=== PATIENT | male | born 1985 | race Caucasian/White ===

== ENCOUNTER 2016-12-20 21:26 | Inpatient (IN) | payer OTHER ==
[~2016-12-20] VITALS: Ht 177.8 cm; Wt 91.7 kg
[~2016-12-20 21:26] MED LIST: CLIN1CAP5 PO
[2016-12-20 21:34] VITALS: PULSE 85; RESP 18; TEMP 98.2; O2SAT 100
[2016-12-20] MEDS ORDERED: SODIUM CHLOR 0.9% 1000 ML INJ 1,000 ML IV SCH (21:36)
[2016-12-20 21:37] VITALS: BP 136/89; PULSE 100; RESP 18; O2SAT 99
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
[2016-12-20] MEDS ORDERED: SODIUM CHLORIDE 0.9% FLUSH 10 ML FLUSH IV FLUSH PRN ×2 (21:45→23:15)
[2016-12-20] MEDS ORDERED: ceFAZolin 2 GM PREMIX 50 ML IV ONE (21:45)
[2016-12-20] MEDS ORDERED: ONDANSETRON HCL 4 MG/2 ML VIAL IVP ONE (21:45)
[2016-12-20] MEDS ORDERED: TETANUS/DIPHTHERIA TOXOID ADULT 0.5 ML VIAL IM ONE (21:45)
[2016-12-20] MEDS ORDERED: HYDROmorphone HCL PF 1 MG/ML VIAL IVS ONE (21:45)
[2016-12-20 22:07] LABS: AUTOMATED NEUTROPHIL # 7.9 TH/MM3 (1.8-7.7); BASOPHIL % 0.3 % (0.0-2.0); EOSINOPHIL % 0.2 % (0.0-4.0); HEMO FLAGS DIFF FINAL; LYMPH % 22.4 % (9.0-44.0); LYMPHOCYTE # 2.6 TH/MM3 (1.0-4.8); MEAN CORPUSCULAR HEMOGLOBIN 29.4 PG (27.0-34.0); MEAN CORPUSCULAR HGB CONC 33.5 % (32.0-36.0); MONO % 8.9 % (0.0-8.0); NEUT % 68.2 % (16.0-70.0); PLATELET COUNT 357 TH/MM3 (150-450); RED BLOOD COUNT 4.55 MIL/MM3 (4.50-5.90); RED CELL DISTRIBUTION WIDTH 13.9 % (11.6-17.2); WHITE BLOOD COUNT 11.6 TH/MM3 (4.0-11.0)
[2016-12-20 22:11] LABS: INTERNATIONAL NORMALIZED RATIO 1.1 RATIO; PROTHROMBIN TIME - PATIENT 11.8 SEC (9.8-11.6)
[2016-12-20] MEDS ORDERED: HYDROmorphone HCL PF 1 MG/ML VIAL IV PUSH ONE ×2 (22:15→22:45)
[2016-12-20 22:20] VITALS: BP 138/92; PULSE 99; RESP 18; O2SAT 100
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
[2016-12-20 22:28] LABS: ANION GAP 16 MEQ/L (5-15); AST (GOT) 32 U/L (15-37); BICARBONATE 21.7 MEQ/L (21.0-32.0); BLOOD UREA NITROGEN 21 MG/DL (7-18); CHLORIDE 100 MEQ/L (98-107); GLOMERULAR FILTRATION RATE 58 ML/MIN (>89); POTASSIUM 3.3 MEQ/L (3.5-5.1); SODIUM (NA) 138 MEQ/L (136-145)
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
[2016-12-20 22:34] LABS: ALKALINE PHOSPHATASE 88 U/L (45-117); ALT (GPT) 31 U/L (12-78); TOTAL BILIRUBIN ADULT 1.7 MG/DL (0.2-1.0)
[2016-12-20] MEDS ORDERED: GENTAMICIN 80 MG PREMIX 100 ML IV ONE (23:15)
[2016-12-20] MEDS ORDERED: ACETAMINOPHEN/HYDROcodone 325 MG/5 MG TAB PO PRN (23:15)
[2016-12-20] MEDS ORDERED: ONDANSETRON HCL 4 MG/2 ML VIAL IV PRN (23:15)
[2016-12-20] MEDS ORDERED: MAGNESIUM HYDROXIDE SUSP 30 ML CUP PO PRN (23:15)
[2016-12-20] MEDS ORDERED: ENALAPRILAT 1.25 MG/ML VIAL IV PRN (23:15)
[2016-12-20 23:30] VITALS: BP 142/88; PULSE 96; RESP 16; O2SAT 99
[2016-12-20] MEDS ORDERED: GENTAMICIN 80 MG PREMIX 100 ML ONE (23:35)
[2016-12-20] MEDS: SODIUM CHLOR 0.9% 1000 ML INJ 1,000 ML IV SCH (23:48)
[2016-12-20] MEDS: HYDROmorphone HCL PF 1 MG/ML VIAL IVP PRN (23:57)
[2016-12-21] VITALS (7 sets, daily range): BP systolic 104–130; BP diastolic 52–80; PULSE 73–89; RESP 16–20; TEMP 97.2–99.7; O2SAT 98–100
[2016-12-21] MEDS ORDERED: ceFAZolin 2 GM PREMIX 50 ML IV SCH
[2016-12-21] MEDS: ACETAMINOPHEN/HYDROcodone 325 MG/5 MG TAB PO PRN ×5 (01:18→21:25)
[2016-12-21] MEDS: PANTOPRAZOLE SODIUM 40 MG VIAL IVP SCH ×2 (01:19→23:41)
[2016-12-21] MEDS: HYDROmorphone HCL PF 1 MG/ML VIAL IVP PRN ×5 (02:57→19:39)
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
[2016-12-21] MEDS: ceFAZolin 2 GM PREMIX 50 ML IV SCH ×3 (05:26→21:24)
[2016-12-21 07:19] LABS: AUTOMATED NEUTROPHIL # 6.8 TH/MM3 (1.8-7.7); BASOPHIL % 0.3 % (0.0-2.0); EOSINOPHIL % 0.2 % (0.0-4.0); HEMO FLAGS DIFF FINAL; LYMPH % 13.8 % (9.0-44.0); LYMPHOCYTE # 1.3 TH/MM3 (1.0-4.8); MEAN CELL VOLUME 89.4 FL (80.0-100.0); MEAN CORPUSCULAR HEMOGLOBIN 29.8 PG (27.0-34.0); MEAN CORPUSCULAR HGB CONC 33.4 % (32.0-36.0); MONO % 12.5 % (0.0-8.0); NEUT % 73.2 % (16.0-70.0); PLATELET COUNT 268 TH/MM3 (150-450); RED BLOOD COUNT 3.92 MIL/MM3 (4.50-5.90); RED CELL DISTRIBUTION WIDTH 13.7 % (11.6-17.2); WHITE BLOOD COUNT 9.3 TH/MM3 (4.0-11.0)
[2016-12-21 07:48] LABS: ANION GAP 10 MEQ/L (5-15); AST (GOT) 38 U/L (15-37); BICARBONATE 22.5 MEQ/L (21.0-32.0); BLOOD UREA NITROGEN 18 MG/DL (7-18); CHLORIDE 106 MEQ/L (98-107); GLOMERULAR FILTRATION RATE 108 ML/MIN (>89); POTASSIUM 3.7 MEQ/L (3.5-5.1); SODIUM (NA) 138 MEQ/L (136-145)
[2016-12-21 07:52] LABS: ALKALINE PHOSPHATASE 68 U/L (45-117); ALT (GPT) 28 U/L (12-78)
[2016-12-21] MEDS: DOCUSATE SODIUM 100 MG CAP PO SCH ×2 (08:17→21:23)
[2016-12-21] MEDS: SODIUM CHLOR 0.9% 1000 ML INJ 1,000 ML IV SCH ×2 (09:10→17:59)
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
[2016-12-21] MEDS ORDERED: DOCU1CAP39 PO (11:49)
[2016-12-21] MEDS ORDERED: MILKSUS PO (11:49)
[2016-12-21] MEDS: ENOXAPARIN SODIUM 30 MG/0.3 ML SYRINGE SQ SCH ×2 (12:50→23:41)
[2016-12-21] MEDS: KETOROLAC TROMETHAMINE 30 MG/ML (IVP) VIAL IV PUSH SCH ×3 (12:51→23:41)
--- NOTE | 2016-12-21 21:14 | EKG ---
Date Performed: 12/21/2016 Time Performed: 00:07:19 PTAGE: 31 years EKG: Sinus rhythm WITH SINUS ARRHYTHMIA NORMAL ECG NO PREVIOUS TRACING DOCTOR: Horacio Canales Interpretating Date/Time 12/21/2016 21:12:45
[2016-12-21] MEDS: MAGNESIUM HYDROXIDE SUSP 30 ML CUP PO SCH (21:23)
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
[2016-12-22] VITALS (7 sets, daily range): BP systolic 112–128; BP diastolic 58–70; PULSE 68–83; RESP 16–18; TEMP 96.5–97.6; O2SAT 99–100
[2016-12-22] MEDS: SODIUM CHLOR 0.9% 1000 ML INJ 1,000 ML IV SCH (03:47)
[2016-12-22] MEDS: ACETAMINOPHEN/HYDROcodone 325 MG/5 MG TAB PO PRN ×5 (03:50→21:34)
[2016-12-22 05:21] LABS: AUTOMATED NEUTROPHIL # 6.2 TH/MM3 (1.8-7.7); BASOPHIL % 0.3 % (0.0-2.0); EOSINOPHIL # 0.1 TH/MM3 (0-0.4); EOSINOPHIL % 1.4 % (0.0-4.0); HEMATOCRIT 34.7 % (39.0-51.0); HEMO FLAGS DIFF FINAL; LYMPH % 14.8 % (9.0-44.0); LYMPHOCYTE # 1.3 TH/MM3 (1.0-4.8); MEAN CELL VOLUME 88.8 FL (80.0-100.0); MEAN CORPUSCULAR HEMOGLOBIN 30.6 PG (27.0-34.0); MEAN CORPUSCULAR HGB CONC 34.5 % (32.0-36.0); MONO % 11.8 % (0.0-8.0); NEUT % 71.7 % (16.0-70.0); PLATELET COUNT 269 TH/MM3 (150-450); RED BLOOD COUNT 3.91 MIL/MM3 (4.50-5.90); RED CELL DISTRIBUTION WIDTH 13.8 % (11.6-17.2); WHITE BLOOD COUNT 8.6 TH/MM3 (4.0-11.0)
[2016-12-22 05:39] LABS: ALKALINE PHOSPHATASE 68 U/L (45-117); ALT (GPT) 22 U/L (12-78); ANION GAP 10 MEQ/L (5-15); AST (GOT) 27 U/L (15-37); BICARBONATE 26.2 MEQ/L (21.0-32.0); BLOOD UREA NITROGEN 13 MG/DL (7-18); CHLORIDE 104 MEQ/L (98-107); GLOMERULAR FILTRATION RATE 110 ML/MIN (>89); POTASSIUM 3.6 MEQ/L (3.5-5.1); SODIUM (NA) 140 MEQ/L (136-145)
[2016-12-22] MEDS: ceFAZolin 2 GM PREMIX 50 ML IV SCH ×3 (06:11→21:32)
[2016-12-22] MEDS: KETOROLAC TROMETHAMINE 30 MG/ML (IVP) VIAL IV PUSH SCH ×3 (06:11→17:50)
[2016-12-22] MEDS ORDERED: WHEEMIS3 (07:42)
[2016-12-22] MEDS ORDERED: WALKER WHEELS/F1 MIS (07:42)
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
[2016-12-22] MEDS: DOCUSATE SODIUM 100 MG CAP PO SCH ×2 (09:19→21:33)
[2016-12-22] MEDS: LACTULOSE SYRUP 20 GM/30 ML CUP PO SCH (09:19)
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
[2016-12-22] MEDS: ENOXAPARIN SODIUM 30 MG/0.3 ML SYRINGE SQ SCH (13:20)
[2016-12-22] MEDS: GABAPENTIN 300 MG CAP PO SCH ×2 (13:22→17:50)
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
[2016-12-22] MEDS: MAGNESIUM HYDROXIDE SUSP 30 ML CUP PO SCH (21:00)
[2016-12-23] MEDS: KETOROLAC TROMETHAMINE 30 MG/ML (IVP) VIAL IV PUSH SCH ×4 (00:49→17:36)
[2016-12-23] MEDS: ENOXAPARIN SODIUM 30 MG/0.3 ML SYRINGE SQ SCH ×2 (00:49→12:07)
[2016-12-23] MEDS: PANTOPRAZOLE SODIUM 40 MG VIAL IVP SCH (00:50)
[2016-12-23 04:05] VITALS: BP 121/62; PULSE 74; RESP 16; TEMP 97.2; O2SAT 100
[2016-12-23] MEDS: ceFAZolin 2 GM PREMIX 50 ML IV SCH ×3 (06:59→21:46)
[2016-12-23 07:43] VITALS: BP 119/51; PULSE 64; RESP 18; TEMP 98.5; O2SAT 100
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
[2016-12-23] MEDS: GABAPENTIN 300 MG CAP PO SCH ×3 (08:20→17:36)
[2016-12-23] MEDS: DOCUSATE SODIUM 100 MG CAP PO SCH ×2 (08:21→21:00)
[2016-12-23] MEDS: LACTULOSE SYRUP 20 GM/30 ML CUP PO SCH (08:21)
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
[2016-12-23 12:00] VITALS: BP 128/68; PULSE 79; RESP 18; TEMP 99.1; O2SAT 97
[2016-12-23] MEDS: ACETAMINOPHEN/HYDROcodone 325 MG/5 MG TAB PO PRN ×3 (12:07→21:51)
[2016-12-23] MEDS: HYDROmorphone HCL PF 1 MG/ML VIAL IVP PRN (14:38)
[2016-12-23 16:00] VITALS: BP 114/65; PULSE 80; RESP 18; TEMP 98.4; O2SAT 100
[2016-12-23 19:35] VITALS: BP 127/54; PULSE 84; RESP 16; TEMP 97.7; O2SAT 99
[2016-12-23] MEDS: MAGNESIUM HYDROXIDE SUSP 30 ML CUP PO SCH (21:00)
[2016-12-24] MEDS ORDERED: PANTOPRAZOLE SOD 40 MG DELAYED RELEASE TAB PO SCH
[2016-12-24 01:10] VITALS: BP 108/63; PULSE 82; RESP 16; TEMP 97; O2SAT 96
[2016-12-24 04:05] VITALS: BP 110/63; PULSE 76; RESP 16; TEMP 97; O2SAT 100
[2016-12-24] MEDS: ceFAZolin 2 GM PREMIX 50 ML IV SCH ×2 (06:00→12:42)
[2016-12-24] MEDS: KETOROLAC TROMETHAMINE 30 MG/ML (IVP) VIAL IV PUSH SCH ×4 (06:00→16:38)
[2016-12-24 07:40] VITALS: BP 117/60; PULSE 58; RESP 17; TEMP 95.8; O2SAT 100
[2016-12-24 07:41] LABS: AUTOMATED NEUTROPHIL # 3.4 TH/MM3 (1.8-7.7); BASOPHIL % 0.3 % (0.0-2.0); EOSINOPHIL # 0.2 TH/MM3 (0-0.4); EOSINOPHIL % 3.9 % (0.0-4.0); HEMATOCRIT 29.6 % (39.0-51.0); HEMO FLAGS DIFF FINAL; LYMPH % 29.8 % (9.0-44.0); LYMPHOCYTE # 1.8 TH/MM3 (1.0-4.8); MEAN CELL VOLUME 88.8 FL (80.0-100.0); MEAN CORPUSCULAR HEMOGLOBIN 30.2 PG (27.0-34.0); MONO % 9.9 % (0.0-8.0); NEUT % 56.1 % (16.0-70.0); PLATELET COUNT 234 TH/MM3 (150-450); RED BLOOD COUNT 3.33 MIL/MM3 (4.50-5.90); RED CELL DISTRIBUTION WIDTH 13.6 % (11.6-17.2); WHITE BLOOD COUNT 6.1 TH/MM3 (4.0-11.0)
[2016-12-24] MEDS ORDERED: HYDR-3516 PO (07:50)
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
[2016-12-24 08:07] LABS: ALKALINE PHOSPHATASE 64 U/L (45-117); ALT (GPT) 21 U/L (12-78); ANION GAP 7 MEQ/L (5-15); AST (GOT) 29 U/L (15-37); BICARBONATE 29.5 MEQ/L (21.0-32.0); BLOOD UREA NITROGEN 14 MG/DL (7-18); CHLORIDE 106 MEQ/L (98-107); GLOMERULAR FILTRATION RATE 118 ML/MIN (>89); POTASSIUM 3.6 MEQ/L (3.5-5.1); SODIUM (NA) 142 MEQ/L (136-145); TOTAL BILIRUBIN ADULT 0.4 MG/DL (0.2-1.0)
[2016-12-24] MEDS: GABAPENTIN 300 MG CAP PO SCH ×3 (08:08→12:41)
[2016-12-24] MEDS: ACETAMINOPHEN/HYDROcodone 325 MG/5 MG TAB PO PRN ×3 (08:09→16:37)
[2016-12-24] MEDS: LACTULOSE SYRUP 20 GM/30 ML CUP PO SCH (08:09)
[2016-12-24] MEDS: DOCUSATE SODIUM 100 MG CAP PO SCH (08:10)
[2016-12-24] MEDS: ENOXAPARIN SODIUM 30 MG/0.3 ML SYRINGE SQ SCH ×2 (11:03)
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
[2016-12-24 11:36] VITALS: BP 128/62; PULSE 67; RESP 17; TEMP 97.3; O2SAT 98
[2016-12-24 15:54] VITALS: BP 116/54; PULSE 85; RESP 17; TEMP 96.4; O2SAT 100
[2016-12-24 17:40] VITALS: RESP 16
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
== END 2016-12-24 18:20 | disposition home or self-care (01) | DRG 563 ==
LOC: NEPC 21:26 → NEDA 23:04 → N06B 12-21 00:48
PROVIDERS: ADMIT Surgery; ATTEND Surgery
DX: S82.142B Displaced bicondylar fracture of left tibia, initial encounter for open fracture type I or II (principal); F17.210 Nicotine dependence, cigarettes, uncomplicated; S82.251B Displaced comminuted fracture of shaft of right tibia, initial encounter for open fracture type I or II; G25.81 Restless legs syndrome; X95.9XXA Assault by unspecified firearm discharge, initial encounter; Y92.008 Other place in unspecified non-institutional (private) residence as the place of occurrence of the external cause
CPT/HCPCS: 73590; 80053; 85025; 85610; 85730; 90471; 90714; 93005; 94150; 96374; 96375; 96376; C9113; J0690; J1170; J1580; J1650; J1885; J2405; J7030